=== PATIENT | female | born 1975 | race African-American/Black ===

== ENCOUNTER 2019-03-19 18:12 | Observation (INO) ==
[2019-03-19] MEDS ORDERED: HUMULIN R IV ONE (18:23)
[2019-03-19] MEDS ORDERED: ZOFRAN IV ONE ×2 (18:23→19:50)
[2019-03-19] MEDS ORDERED: NS 1,000 ML IV ONE ×2 (18:23→19:52)
--- NOTE | 2019-03-19 18:27 | PROVIDER DOCUMENTATION ---
HPI-Screening - General Chief Complaint: High Blood Sugar Stated Complaint: HIGH BLOOD SUGAR Time Seen by Provider: 03/19/19 18:22 Source: patient Allergies/Adverse Reactions: Allergies Allergy/AdvReac Type Severity Reaction Status Date / Time aspirin Allergy Severe HIVES Verified 11/18/18 11:50 Home Medications: Home Medication List Medication Instructions Recorded Confirmed Last Taken Type Topiramate 25 mg PO DAILY 01/20/17 11/18/18 11/04/17 History Alprazolam [Xanax] 0.5 mg PO DAILY 02/13/17 11/05/17 11/04/17 History Brompheniramine/Pseudoephed/Dm 5 ml PO Q6H PRN 07/31/17 11/05/17 11/04/17 History [Bromfed Dm Cough Syrup] Gabapentin 600 mg PO BID 07/31/17 11/18/18 11/04/17 History Hydrocodone/APAP 10 mg/325 mg 1 each PO BID PRN 07/31/17 11/18/18 11/04/17 History [[place]-10] Montelukast Sodium [Singulair] 10 mg PO DAILY 07/31/17 11/18/18 11/04/17 History Patient arrived via EMS?: No HPI: Patient is a 44 yobf who was sent from [facility] due to hyperglycemia. States her blood glucose level was greater than 700 there. She has been having polyuria, chills, abdominal pain, and n/v since yesterday. No previous diagnosis of DM. Physical Exam-Screening - CONSTITUTIONAL General Appearance: alert, no apparent distress. negative: lethargic, slow to respond - RESPIRATORY Respiratory: lungs clear, normal breath sounds, no respiratory distress, no accessory muscle use - CARDIOVASCULAR Cardiovascular: regular rate, rhythm, no gallop, no murmur, tachycardia - GASTROINTESTINAL (ABDOMEN) Abdominal Exam: non tender, soft, other (hyperactive BS) Screening Depart - Departure ED Screening Disposition: Continued in ED for Treatment Referrals and Follow-Ups: Ayush Kwok MD [Primary Care Provider] - Attestation - Physician/ SIGIFREDO Attestation Patient care was provided by Advanced Practice Provider:: Yes Advanced Practice Provider:: Luis Weiss Advanced Practice Provider documentation review:: The Mid-level provider documentation, treatment plan and medical decision making was reviewed by the physician who agrees with all treatment and medical decision making by the MLP. The physician spent face to face time with patient:: No Advanced Practice Provider documentation review:: Supervising physician onsite and consulted in the evaluation and care of this patient. The physician did not have a face to face encounter with the patient.
--- NOTE | 2019-03-19 18:48 | PROVIDER DOCUMENTATION ---
HPI-Abdominal Pain/GI Problem - General Chief Complaint: High Blood Sugar Stated Complaint: HIGH BLOOD SUGAR Time Seen by Provider: 03/19/19 18:22 Source: patient Allergies/Adverse Reactions: Patient Allergies Allergy/AdvReac Type Severity Reaction Status Date / Time aspirin Allergy Severe HIVES Verified 11/18/18 11:50 Home Medications: Home Medication List Medication Instructions Recorded Confirmed Last Taken Type Topiramate 25 mg PO DAILY 01/20/17 03/19/19 11/04/17 History Gabapentin 600 mg PO BID 07/31/17 03/19/19 11/04/17 History Hydrocodone/APAP 10 mg/325 mg 800 mg PO BID PRN 07/31/17 03/19/19 11/04/17 History [[place]-10] - History of Present Illness-ABD Nature of Presenting Problems: Patient is a 44 year old black female with history of chronic pain due to fibromyalgia (followed at local pain clinic, takes daily hydrocodone),migraines, and asthma who complains of worsening upper abdomen with nausea,vomiting, and diarrhea for past 2 weeks. Patient also complains of high blood sugar when she was seen at [facility] today. Upon presentation patient noted to have blood glucose of 727. Denies fever or dysuria. Review of Systems - Adult - REVIEW OF SYSTEMS - ADULT Constitutional: denies: chills, fever Eyes: denies: discharge Ears, Nose, Mouth & Throat: denies: throat swelling Cardiovascular: denies: chest pain Respiratory: denies: cough, shortness of breath, wheezing Gastrointestinal: reports: abdominal pain, diarrhea, nausea, vomiting Genitourinary: denies: dysuria Musculoskeletal: reports: muscle aches (chronic pain due to fibromyalgia) Integumentary: denies: rash Neurological: reports: headache/migraines. denies: paresthesia Psychiatric: reports: see HPI Endocrine: reports: increased thirst, polyuria Hematologic/Lymphatic: reports: no symptoms reported Allergic/Immunologic: reports: no symptoms reported All Other Systems: Reviewed and Negative Past History - Adult - PAST MEDICAL HISTORY-ADULT Review of Records: reports: Old Records Reviewed, Nursing Assessment Review, Medications Reviewed, Social history reviewed & non-contributory. Major Childhood Illnesses: reports: denies history Cardiovascular: reports: HTN Respiratory: reports: asthma Gastrointestinal: reports: ulcer, other (hernia, gastritis) Obstetrical/Gynecological: reports: denies history Genitourinary: reports: denies history Musculoskeletal: reports: fibromyalgia Neurological: reports: headaches/migraines, Seizures/Epilepsy Psychiatric: reports: denies history Endocrine/Immune: reports: denies history Other Conditions: reports: denies history - PRIOR SURGERIES/PROCEDURES Surgical/Procedure History: reports: breast - IMMUNIZATION STATUS Childhood Immunizations: See Nurse Assessment Flu Vaccine: See Nurse Assessment - FAMILY HISTORY Family History: diabetes - SOCIAL HISTORY Smoking: quit less than 1 year Substance Use: denies Alcohol Use Frequency: occasionally Living Situation: family Physical Exam-General - PHYSICAL EXAM-ADULT Initial Vital Signs Reviewed: Yes - CONSTITUTIONAL General Appearance: alert, obese - EYES Eyes: other (clear) - HEAD, EARS, NOSE, MOUTH & THROAT HENMT: normocephalic/atraumatic, moist mucous membranes - NECK Neck: non-tender, full range of motion, supple - RESPIRATORY Respiratory: lungs clear - CARDIOVASCULAR Cardiovascular: tachycardia - GASTROINTESTINAL (ABDOMEN) Abdominal Exam: soft, tenderness (generalized tenderness, worse over upper quadrant). negative: guarding, rigid, rebound - LYMPHATIC Lymphatic: no adenopathy - MUSCULOSKELETAL Back Exam: normal inspection Extremity: normal range of motion - SKIN Integumentary: normal color, warm/dry - NEUROLOGIC Neurologic: grossly normal - PSYCHIATRIC Psych/Mental Status: normal mood/affect, normal thought content Progress - PLAN OF CARE/RESULTS Progress/Plan/Lab Results: Vital Signs - 8 hr 03/19/19 18:20 Temperature 98.0 F Pulse Rate 103 H Respiratory Rate 18 Blood Pressure 119/82 O2 Sat by Pulse Oximetry 97 Orders Category Date Time Status Cardiac Monitoring DIRECTED Care 03/19/19 18:23 Active ED: Urine Bedside ORDERED Care 03/19/19 18:23 Active Nursing- Obtain EKG ONCE Care 03/19/19 18:23 Active CHEST-2 VIEWS [RAD] Stat Exams 03/19/19 18:23 Ordered ABG [RESP] Routine Lab 03/19/19 18:23 Ordered ACETONE SERUM [CHEM] Stat Lab 03/19/19 18:23 Uncollected CBC WITH DIFF [HEME] Stat Lab 03/19/19 18:23 Ordered COMPREHENSIVE METABOLIC PANEL [CHEM] Stat Lab 03/19/19 18:23 Uncollected LIPASE [CHEM] Stat Lab 03/19/19 18:23 Uncollected UA NIMS W/REFLEX CULT [URINALYSIS] Stat Lab 03/19/19 18:23 Uncollected 0.9% Sodium Chloride Inj [Ns] 1,000 ml Med 03/19/19 18:23 Active IV 999 mls/hr Insulin Human Regular [Humulin R] Med 03/19/19 18:23 Discontinued 10 unit IV NOW ONE Ondansetron [Zofran] Med 03/19/19 18:23 Discontinued 4 mg IV NOW ONE EKG [EKG] Stat Ther 03/19/19 18:23 Ordered Result Diagrams: 03/19/19 18:45 03/19/19 18:45 - CONSULTS/PCP/HOSPITALIST Notification #1 *Consult/PCP/Hospitalist*: Dr. Holly, hospitalist Time Discussed: 20:00 Reason/Comments: start high dose sliding scale, no insulin drip or DKA protocol Consult Disposition: Admit Departure - Departure Date of Disposition Decision: 03/19/19 Time of Disposition Decision: 21:05 DIAGNOSIS: New onset type 2 diabetes mellitus, Lactic acidosis, Chronic abdominal pain Disposition: ADMITTED INPATIENT 09 Certified Medical Emergency: Emergent Condition: Stable Referrals and Follow-Ups: Ayush Kwok MD [Primary Care Provider] - - Critical Care Note This patient required my direct & personal management of CC.: No Attestation - Physician/ SIGIFREDO Attestation Patient care was provided by Advanced Practice Provider:: No The physician spent face to face time with patient:: Yes Advanced Practice Provider documentation review:: Supervising physician onsite and consulted in the evaluation and care of this patient. The physician did have a face to face encounter with the patient.
[2019-03-19 19:06] LABS: URINE SOURCE CLEAN CATCH
[2019-03-19 19:12] LABS: BILIRUBIN URINE NEGATIVE (NEGATIVE); BLOOD URINE NEGATIVE (NEGATIVE); COLOR STRAW; GLUCOSE URINE >1000 mg/dL (NEGATIVE); KETONE URINE NEGATIVE (NEGATIVE); LEUKOCYTES URINE NEGATIVE (NEGATIVE); NITRITE URINE NEGATIVE (NEGATIVE); PROTEIN URINE NEGATIVE (NEGATIVE); SP GRAVITY URINE 1.027; TURBIDITY URINE CLEAR (CLEAR); UROBILINOGEN URINE NORMAL (NORMAL)
[2019-03-19 19:15] LABS: BASO# 0.02 X1000 (0.0-0.2); BASO% 0.2 % (0.0-0.8); EOS# 0.09 X1000 (0.0-0.7); EOS% 1.1 % (0.0-10.0); HEMATOCRIT 42.8 % (37.0-47.0); HEMOGLOBIN 15.5 g/dL (12.0-16.0); IMM GRAN# 0.02 X1000 (0.0-0.04); IMM GRAN% 0.2 % (0.0-0.5); LYMPH# 4.84 X1000 (1.2-3.4); MCH 30.7 PG (27-31); MCHC 36.2 g/dL (33-37); MCV 84.8 FL (81-99); MONO# 0.54 X1000 (0.11-0.59); MONO% 6.6 % (1.7-9.3); NEUT# 2.69 X1000 (1.4-6.5); NEUT% 32.9 % (42.2-75.2); PLT 129 X1000 (130-400); RBC 5.05 XMIL (4.2-5.4); RDW 11.8 % (11.5-14.5); UR EPITHELIAL CELLS <10 /HPF (<10); URINE BACTERIA 1+ /HPF; URINE RBC <10 /HPF (<10); URINE WBC <10 /HPF (<10)
[2019-03-19 19:20] LABS: URINE YEAST PRESENT
[2019-03-19 19:25] LABS: ACETONE SERUM NEGATIVE (NEGATIVE)
[2019-03-19 19:37] LABS: ALLEN TEST YES; BE -3.9 mmoll (-3.0-3.0); BLOOD TYPE ARTERIAL; HCO3-(ACT) 21.8 mmoll (20.0-26.0); METHB 0.9 % (0.0-1.5); O2(CT) 18.5 mL/dL (15.0-23.0); O2HB 93.9 % (95.0-99.0); PCO2(98.6) 40 mmHg (35-45); PO2(98.6) 72 mmHg (60-100); SAMPLE BLOOD; SAO2 96.7 % (95.0-100.0); pH(98.6) 7.34 (7.35-7.45)
[2019-03-19 19:39] LABS: MODALITY ROOM AIR
[2019-03-19 19:45] LABS: AGAP 20; ALB/GLOB RATIO 1.8; ALBUMIN 5.1 g/dL (3.5-5.0); ALKALINE PHOSPHATASE 176 U/L (32-104); BUN 7 mg/dL (8-22); CALCIUM 10.1 mg/dL (8.8-10.2); CHLORIDE 90 mmol/L (98-107); COSMO 288; CREATININE 1.2 mg/dL (0.5-0.9); ESTIMATED GFR 59; GOT 65 U/L (10-30); GPT 94 U/L (10-36); POTASSIUM 4.5 mmol/L (3.5-5.1); SODIUM 130 mmol/L (136-145); TCO2 20 mmol/L (25-35); TOTAL BILIRUBIN 0.85 mg/dL (0.20-1.00)
--- NOTE | 2019-03-19 19:45 | Diag Imaging Result Doc PS360 ---
EXAM: CHEST-1 VIEW INDICATION: abdominal pain TECHNIQUE: One view COMPARISON: 11/18/2018 FINDINGS: The lungs are grossly clear. There is no discrete pleural fluid collection or pneumothorax. The cardiomediastinal silhouette and central vasculature are grossly unremarkable. IMPRESSION: No evidence of acute pathology by plain radiograph. Electronically signed by Justin Shin 03/19/2019 7:43 PM
[2019-03-19 19:48] LABS: GLUCOSE 644 mg/dL (70-104)
[2019-03-19] MEDS ORDERED: DILAUDID IV ONE (19:49)
--- NOTE | 2019-03-19 20:11 | ED EKG INTERP ---
This chart was entered by Juliette Jean Scribe, acting as scribe for Dutch De La Vega MD. EKG Interpretation - EKG Time of EKG reading by physician:: 19:05 EKG Read and Signed by:: Dutch De La Vega EKG Interpretation (*Must complete 3 of following elements*): Normal (rate 91 NSR Possible Anterior infarct, age undetermined) Attestation - Physician/ SIGIFREDO Attestation Patient care was provided by Advanced Practice Provider:: No The physician spent face to face time with patient:: Yes Advanced Practice Provider documentation review:: Supervising physician onsite and consulted in the evaluation and care of this patient. The physician did have a face to face encounter with the patient. This chart was documented by the indicated scribe, (Juliette Jean Scribe) and accurately reflects the services I performed and decisions made by me, Dutch De La Vega MD, as attested by the provider's signature.
--- NOTE | 2019-03-19 20:38 | EKG Report ---
Test Performed on : 03/19/2019 7:05:22 PM Test Reason : tachycardia Blood Pressure : / mmHG Vent. Rate : 091 BPM Atrial Rate : 091 BPM P-R Int : 164 ms QRS Dur : 078 ms QT Int : 360 ms P-R-T Axes : 032 017 028 degrees QTc Int : 442 ms Normal sinus rhythm. Possible Anterior infarct , age undetermined Abnormal ECG When compared with ECG of 18-NOV-2018 11:30, No significant change was found Unconfirmed Result
[2019-03-19] MEDS ORDERED: HUMULIN R SUBQ ONE (21:02)
--- NOTE | 2019-03-19 21:27 | Diag Imaging Result Doc PS360 ---
EXAM: CT ABD/PELVIS W/IV CONT ONLY INDICATION: abdominal pain TECHNIQUE: This exam was performed using automated exposure control, adjustment of mA or kV according to patient size, and/or use of iterative reconstruction technique. COMPARISON: None. FINDINGS: There is mild scarring versus atelectasis at the anterior lung bases. There is advanced hepatic steatosis. The gallbladder, spleen, pancreas, adrenal glands, and kidneys are grossly unremarkable. The urinary bladder is partially distended and is grossly unremarkable, otherwise. There is a 3.2 cm mass arising from the posterior wall at the lower uterine segment that statistically very likely represents a leiomyoma. The reproductive tract is grossly unremarkable as imaged, otherwise. The appendix is normal. There is no evidence of focal bowel wall thickening or bowel obstruction. The remainder of the GI tract is grossly unremarkable. No focal inflammatory changes, free abdominal gas, or free fluid is identified. There is no evidence of acute osseous abnormality. IMPRESSION: 1.Extensive hepatic steatosis. 2.Uterine wall mass that statistically most likely represents a leiomyoma. 3.No definite acute pathology by CT. Electronically signed by Justin Shin 03/19/2019 9:25 PM
[2019-03-19] MEDS ORDERED: TYLENOL PO PRN (22:59)
[2019-03-19] MEDS ORDERED: DUONEB (A & A) INH PRN (22:59)
[2019-03-20] MEDS: NS 1,000 ML IV SCH ×4 (00:01→22:06)
[2019-03-20] MEDS: MORPHINE IV PRN ×5 (00:01→22:10)
[2019-03-20] MEDS: ZOFRAN IV PRN ×4 (00:01→18:54)
--- NOTE | 2019-03-20 01:39 | HISTORY AND PHYSICAL ---
PRIMARY CARE PHYSICIAN: Dr. Kwok. CHIEF COMPLAINT: Abdominal pain, nausea, vomiting and diarrhea x3 weeks. HISTORY OF PRESENTING ILLNESS: A 44-year-old female with a history of fibromyalgia, migraines and asthma, who had presented to emergency department with 3 weeks history of having abdominal pain associated with nausea, vomiting, diarrhea. Patient states that it seemed to be worsening over the past several days. The patient states that she did not feel well and subsequently had come to the emergency department. In the ED she was evaluated. She had laboratories drawn which did show markedly elevated blood glucose. She was given IV insulin and due to her presenting symptoms, she will require admission for further management. At the time of my examination, patient denied any headache, fever, chills, chest pain, shortness of breath or any weight changes, but complained of abdominal pain, nausea, vomiting, diarrhea and not feeling well. PAST MEDICAL HISTORY: Includes fibromyalgia, migraines, asthma. PAST SURGICAL HISTORY: Breast reduction, left index finger amputation. ALLERGIES: No known drug allergies. CURRENT MEDICATIONS: Include gabapentin 600 mg p.o. t.i.d., [place] 10 one p.o. b.i.d., Topamax 25 mg p.o. daily. SOCIAL HISTORY: She is a former smoker. She quit in April of this year. Admits to social alcohol use. Denies any illicit drug use. FAMILY HISTORY: No history of coronary artery disease. REVIEW OF SYSTEMS: Fourteen point review of systems as listed in HPI. Other systems negative. PHYSICAL EXAMINATION: GENERAL: Cooperative, friendly female. She is resting more comfortably now. VITAL SIGNS: Temperature 98.0 degrees, pulse 103, respiration 18, blood pressure 119/82. HEENT: Atraumatic, normocephalic. Extraocular movements intact. PERRLA. NECK: Supple. CHEST: Clear to auscultation. CARDIOVASCULAR: Regular rate and rhythm. ABDOMEN: Soft. Some mild tenderness. EXTREMITIES: No edema. NEUROLOGIC: She is awake, alert, oriented x3. GENITOURINARY: No bladder distention. SKIN: Warm. LABORATORIES AND STUDIES: Sodium 130, potassium 4.5, chloride 90, CO2 is 20, BUN is 7, creatinine is 1.2, glucose 644. WBCs 8.20, hemoglobin 15.5, hematocrit 42.8, platelets 129,000. Urine is nitrite negative. Toxicology, acetone level is negative. CT of the abdomen and pelvis shows some urine wall mass which possibly represents a leiomyoma, no definite acute pathology by CT. ASSESSMENT: A 44-year-old female with a history of fibromyalgia, of migraines and asthma, who had presented to the emergency department with complaint of 3 weeks history of having abdominal pain, nausea, vomiting, diarrhea. She was evaluated in the emergency department. She was found to have markedly elevated blood glucose. Due to her presenting symptoms, we will place the patient for observation for further evaluation and management. 1. Abdominal pain with nausea, vomiting, diarrhea. 2. Hyperglycemia, possible new onset of diabetes mellitus type 2. 3. Asthma. 4. Fibromyalgia. PLAN: 1. We will admit patient to medical floor with telemetry. 2. We will continue with supportive treatment with IV fluids, antiemetics, pain control. 3. Monitor blood glucose. We will put patient on sliding scale insulin regimen. 4. We will check a hemoglobin A1c. 5. Continue with DuoNebs p.r.n. 6. We will give the patient pain control. 7. Put patient on DVT prophylaxis with SCDs. 8. We will continue to follow, and reassess and make further recommendation based on patient's clinical course. cc: Paul Holly MD
[2019-03-20] MEDS: HUMULIN R SUBQ SCH ×2 (06:43→11:40)
[2019-03-20 07:44] LABS: BASO# 0.01 X1000 (0.0-0.2); BASO% 0.2 % (0.0-0.8); EOS# 0.09 X1000 (0.0-0.7); EOS% 1.5 % (0.0-10.0); HEMATOCRIT 37.1 % (37.0-47.0); HEMOGLOBIN 12.7 g/dL (12.0-16.0); LYMPH# 3.78 X1000 (1.2-3.4); MCH 29.6 PG (27-31); MCHC 34.2 g/dL (33-37); MCV 86.5 FL (81-99); MONO# 0.36 X1000 (0.11-0.59); MONO% 6.1 % (1.7-9.3); MPV 12.2 FL (7.4-10.4); NEUT# 1.67 X1000 (1.4-6.5); NEUT% 28.2 % (42.2-75.2); PLT 138 X1000 (130-400); RBC 4.29 XMIL (4.2-5.4); RDW 11.6 % (11.5-14.5); WBC 5.91 X1000 (4.8-10.8)
[2019-03-20 07:56] LABS: AGAP 11; BUN 5 mg/dL (8-22); CALCIUM 9.1 mg/dL (8.8-10.2); CHLORIDE 101 mmol/L (98-107); COSMO 281; ESTIMATED GFR > 60; GLUCOSE 311 mg/dL (70-104); POTASSIUM 3.6 mmol/L (3.5-5.1); SODIUM 136 mmol/L (136-145); TCO2 24 mmol/L (25-35)
--- NOTE | 2019-03-20 11:45 | Diag Imaging Result Doc PS360 ---
EXAM: US ABDOMEN-COMPLETE INDICATION: abdominal pain COMPARISON: None. FINDINGS: The gallbladder appears normal with no stones, wall thickening, or pericholecystic fluid. The common bile duct is normal in diameter. Sonographic Blood's sign was reported to be negative. The liver is diffusely echogenic indicating hepatic steatosis. Portal venous flow is hepatopetal. The pancreas is partially obscured by gas. The visualized portion is unremarkable. The aorta and IVC are obscured. The spleen is unremarkable. The kidneys are grossly unremarkable. IMPRESSION: Hepatic steatosis. Electronically signed by Justin Shin 03/20/2019 11:43 AM
[2019-03-20 13:07] LABS: HEMOGLOBIN A1C 10.1 % (4.8-6.0)
[2019-03-20] MEDS ORDERED: LANTUS INSULIN SUBQ ONE (14:32)
--- NOTE | 2019-03-20 15:59 | PROGRESS NOTE ---
DATE: 03/20/2019 INTERVAL HISTORY: Ms. Burroughs was admitted for epigastric abdominal pain, nausea, and vomiting of about 3 weeks duration. These started becoming intractable so she decided to come to the hospital and was found to have new onset diabetes mellitus. SUBJECTIVE: She is feeling slightly better than when she presented and she thinks that she can eat regular food. We discussed about diabetes and its complications and I answered all of her questions. We also discussed about a fatty liver. OBJECTIVE: Vital Signs: Temperature 98.3, pulse 81, respiratory rate 17, and blood pressure 119/68. She is saturating 98% on room air. General: On physical examination she is not in any acute distress. Morbidly obese. Oral cavity is moist. Lungs: Air entry bilaterally equal. No wheeze or crackles. Cardiovascular: S1, S2 normal. No murmur or gallop. Abdomen: Obese and soft with generalized tenderness. Active bowel sounds. Extremities: No lower extremity edema. Neurologic: She is alert and oriented times 3. LABS: Remarkable for a hemoglobin A1c of 10.1. She has normal kidney function. She does not have lactic acidosis. Microbiology: Blood cultures were drawn for some reason which are in the lab. Abdominal ultrasound detected hepatic steatosis. Abdominal and pelvic CT had extensive hepatic steatosis and a uterine fibroid. ASSESSMENT AND PLAN: 1. Intractable Nausea, vomiting, and epigastric abdominal pain, could be in the setting of diabetic gastroparesis and uncontrolled diabetes. She had an elevated anion gap, hyperglycemia, and a degree of acidosis on presentation though not full blown diabetic ketoacidosis. Continue to monitor and manage with intravenous fluids and as needed pain medications. 2. New onset uncontrolled diabetes. Start the patient on long-acting glargine and short-acting insulin with meals as well as sliding scale insulin. She was counseled about a healthy lifestyle, diet, and regular physical activity as well as weight reduction. 3. Non alcoholic fatty liver: Weight reduction counselling done. She could be a candidate for Thiazolidinediones in future. 3. Asthma and fibromyalgia. Continue home medications of gabapentin and [place]. 4. Disposition: I will monitor the patient as I try to get control of her diabetes. The plan of care was discussed with her and her questions have been answered. cc: MD ANASTACIA Vargas
[2019-03-20] MEDS: HUMALOG SUBQ SCH ×3 (16:45→20:53)
[2019-03-20] MEDS: NORCO-10 PO PRN (20:12)
[2019-03-20] MEDS: NEURONTIN PO SCH (20:13)
[2019-03-21] MEDS: HUMALOG SUBQ SCH ×7 (06:27→21:15)
[2019-03-21] MEDS: NORCO-10 PO PRN (08:36)
[2019-03-21] MEDS: NEURONTIN PO SCH ×3 (08:36→21:14)
[2019-03-21] MEDS ORDERED: LANTUS INSULIN SUBQ SCH (09:00)
[2019-03-21] MEDS ORDERED: LANTUS INSULIN SUBQ ONE (09:18)
[2019-03-21] MEDS ORDERED: KLOR-CON PO ONE (16:15)
--- NOTE | 2019-03-21 18:55 | PROGRESS NOTE ---
DATE: 03/21/2019 INTERVAL HISTORY: No acute events overnight. Patient states her abdominal pain is improving. We discussed about increasing insulin dose, answered all of questions. VITALS: Temperature 98.5 degrees, pulse 92, respiratory 19, blood pressure 134/77, saturating 97% room air. PHYSICAL EXAMINATION: She is not in acute distress. Oral cavity is moist.Lungs: Air entry bilaterally equal. No wheeze, rhonchi, crackles. Cardiovascular: S1, S2 normal. No murmur or gallop. Abdomen: Soft. Generalized tenderness which is improved. Active bowel sounds. No lower extremity edema. She is alert and oriented x3. She has not had any vomiting. LABS: No CBC, BMP today. ASSESSMENT AND PLAN: 1. Intractable nausea, vomiting, epigastric abdominal pain likely in the setting of uncontrolled diabetes and hyperglycemia and a component of very mild diabetic ketoacidosis. I will continue to manage her underlying condition. She is status post intravenous fluid resuscitation. 2. New onset uncontrolled diabetes. Continue patient on long-acting glargine and short-acting insulin with meals as well as sliding scale insulin. She was counseled about diabetes. Considering her GI symptoms she may not be an ideal candidate for metformin. She is obese so sulfonylurea could also not be the best option. I will continue to manage her with insulin and she should have outpatient followup with regular physician . 3. Nonalcoholic fatty liver, weight reduction counseling done. 4. Asthma and fibromyalgia, continue home gabapentin, [place]. DISPOSITION: Awaiting better control of blood sugar. Based on that my plan is to discharge her in next 24 to 48 hours. Plan of care discussed with her. Her questions have been answered. cc: Gómez Babin MD
[2019-03-22] MEDS: HUMALOG SUBQ SCH ×4 (06:47→10:48)
[2019-03-22 07:53] VITALS: BP 111/65
[2019-03-22 08:06] LABS: AGAP 10; BUN 5 mg/dL (8-22); CALCIUM 9.4 mg/dL (8.8-10.2); CHLORIDE 107 mmol/L (98-107); COSMO 288; CREATININE 0.9 mg/dL (0.5-0.9); ESTIMATED GFR > 60; GLUCOSE 268 mg/dL (70-104); POTASSIUM 4.3 mmol/L (3.5-5.1); SODIUM 141 mmol/L (136-145); TCO2 24 mmol/L (25-35)
[2019-03-22] MEDS: NEURONTIN PO SCH (08:59)
[2019-03-22] MEDS ORDERED: LANTUS INSULIN SUBQ SCH (09:00)
[2019-03-22] MEDS: NORCO-10 PO PRN (10:51)
[2019-03-22] MEDS ORDERED: HUMALOG SUBQ SCH (16:00)
--- NOTE | 2019-03-23 10:28 | DISCHARGE SUMMARY ---
ADMISSION DATE: 03/19/2019 DISCHARGE DATE: 03/22/2019 DISCHARGE DISPOSITION: Home. DISCHARGE CONDITION: Hemodynamically stable. Her blood sugars are in acceptable range. Her nausea, vomiting and abdominal pain has significantly decreased. DISCHARGE INSTRUCTIONS: She was advised to have a scheduled follow up with outpatient provider within 7 days. Keep a blood sugar log. Discuss with her outpatient provider about adjusting the dose according to her blood sugar. Detailed instructions regarding pathogenesis of diabetes, complications as well as need for insulin were provided to her. All of her questions were answered. DISCHARGE DIAGNOSES: 1. New onset type 2 diabetes mellitus. 2. Hepatic steatosis related to obesity. 3. Intractable nausea, vomiting, and epigastric abdominal pain in the setting of uncontrolled diabetes. 4. Mild diabetic ketoacidosis. 5. Nonalcoholic fatty liver. OTHER DIAGNOSES: 1. Obesity. 2. Intermittent asthma. 3. History of fibromyalgia. 4. History of chronic pain. 5. History of migraines. 6. History of left index finger amputation. DISCHARGE DIAGNOSES: 1. Gabapentin 800 mg t.i.d. 2. Hydromorphone acetaminophen 10/325 mg b.i.d. as needed. 3. Topiramate 25 mg daily. 4. Ondansetron 1 to 2 tablets t.i.d. as needed for nausea and vomiting. 5. Insulin glargine 25 units subcu daily. 30 day supply has been prescribed. 6. Insulin lispro 9 units twice daily with meals, 30 day supply has been prescribed. VITALS: At the time of discharge, temperature 97.8 degrees, pulse 74, respiratory 18, blood pressure 111/65 and saturating 98% on room air. PHYSICAL EXAMINATION: General: Not in acute distress. HEENT: Oral cavity is moist. Lungs: Air entry bilaterally equal. No wheeze, rhonchi, crackles. Cardiovascular: S1, S2 normal. No murmur, rub, or gallop. Abdomen: Soft. Mild generalized tenderness. No hepatosplenomegaly. Extremities: No lower extremity edema. Neurologic: She was alert and oriented x3. SIGNIFICANT LABORATORY: Her hemoglobin is 12.7 and platelets 138,000. On presentation, she had pH of 7.34, pCO2 40, bicarbonate of 20. Anion gap of 20, and blood sugar of 644. At the time of discharge, her blood glucose is 268. Her hemoglobin A1c was 10.1. Her plasma lactate was normal. TSH was 1.09. Urinalysis had glucosuria without ketonuria and acetone levels were negative. MICROBIOLOGY: Blood culture during hospital admission did not have any growth. IMAGING: Chest x-ray on admission did not have evidence of acute pathology. Abdomen and pelvis CT had extensive hepatic steatosis uterine wall mass, most likely representing leiomyoma without any acute pathology. Abdominal ultrasound performed for abdominal pain had hepatic steatosis. Electrocardiogram on presentation had normal sinus rhythm. HOSPITAL COURSE SUMMARY: Ms. Burroughs is a 44-year-old lady who presented to the emergency room with chief complaints of nausea, vomiting, occasional diarrhea, and worsening abdominal pain since about 3 weeks duration. She at home did not seek any medical attention, however, her problems with epigastric abdominal pain and vomiting were worsening on a daily basis so she had decided to come to the emergency room. Apparently, she has had endoscopy a few years ago as per the history, which was largely unremarkable in the past. She underwent CT scan of the abdomen and pelvis, which were unremarkable for any acute pathology. However, she was found to have blood glucose of 644 on presentation. She also had mild DKA with pH of 7.34 and an anion gap of 20. It was decided to admit her for new onset diabetes mellitus. She was started on basal bolus regimen following which her blood sugar came under acceptable range. At the time of discharge, her average blood sugar has been around 250. Her hemoglobin A1c was 10.1, so she will be discharged on insulin with basal bolus regimen. Detailed discharge instructions were provided to her. She was provided information that she should have close follow up with her regular physician and then decide about further insulin therapy. TIME SPENT: More than 30 minutes were spent in discharging this patient. She was also advised to have a follow up with preschool program director for her chronic abdominal pain. Discuss about any future need for repeat endoscopies. All of the patient's questions have been satisfactorily answered. cc: Gómez Babin MD
== END 2019-03-22 15:04 | disposition home or self-care (01) ==
LOC: ED 18:12 → SUATTDRO 22:30 → INTOOBSV 22:30 → 3N 22:30
PROVIDERS: ATTEND Internal Medicine